=== PATIENT | female | born 1985 | race Caucasian/White ===

== ENCOUNTER 2019-09-23 05:10 | Inpatient (IN) | payer OTHER ==
[2019-09-23] MEDS ORDERED: ELECTROLYTE-148 SOLN 500 ML IV ONE (05:15)
[2019-09-23] MEDS ORDERED: CITRIC ACID/SODIUM CITRATE 30 ML UNIT-DOSE CUP PO ONE (05:15)
[2019-09-23] MEDS ORDERED: ELECTROLYTE-148 SOLN 1,000 ML IV SCH (05:45)
[2019-09-23 06:25] VITALS: BMI 21.2
[2019-09-23] MEDS ORDERED: ONDANSETRON 4 MG/2 ML VIAL IVPUSH PRN (07:43)
[2019-09-23] MEDS ORDERED: morphine SULFATE/Preservative Free 0.5 MG/ML (1cc Syringe) ONE (07:51)
[2019-09-23] MEDS ORDERED: ceFAZolin SODIUM 1 GM VIAL ONE (08:26)
[2019-09-23] MEDS ORDERED: OXYTOCIN 10 UNITS/ML VIAL ONE (08:41)
[2019-09-23] MEDS ORDERED: METHYLERGONOVINE MALEATE 0.2 MG/1 ML AMP IM PRN (09:17)
--- NOTE | 2019-09-23 09:17 | PD.OB.PROG ---
Past Medical History - Primary Care Physician Documenting Provider Type: Laborist - Admission Chief Complaint: previous c sections History Source: Patient Limitations to Obtaining History: No Limitations - Nursing Documentation Maternal Triage Index: Maternal Triage Index ( Priority 5, Requesting MFTI) Hemorrhage Risk Assessment: Risk Level Medium Risk Medium Level Risk Factors for Prior , uterine Hemorrhage Nursing Documentation Reviewed: Yes - Past Medical History ...: 8 ...Para: 3 ...Term: 3 ...: 0 ...Spon : 0 ...Induced : 4 ...Living Children: 0 ...Multiple Gestation: 0 ... Weeks Gestation by Dates: 40.2 ...EDC by Dates: 09/21/19 ...EDC by Sono: 09/30/19 - Past Surgical History Past Surgical History: Yes: (previous c section x 3) - Smoking History Smoking history: Never smoked Have you smoked in the past 12 months: No - Alcohol/Substance Use Hx Alcohol Use: No Physical Exam - Obstetrical Vital Signs: Vital Signs Temperature 98.2 F 09/23/19 06:14 Pulse Rate 71 09/23/19 06:14 Respiratory Rate 18 09/23/19 06:14 Blood Pressure 117/74 09/23/19 06:14 O2 Sat by Pulse Oximetry (%) Assessment/Plan portfolio assistant; primary surgeon = Dr Jena Anderson for repeat c section # 4
--- NOTE | 2019-09-23 09:26 | HP ---
Past Medical History - Primary Care Physician PCP:: Christina Anderson - Admission Chief Complaint: scheduled C/S x4 History Source: Patient Limitations to Obtaining History: No Limitations - Past Medical History ...: 8 ...Para: 3 ...Term: 3 ...: 0 ...Spon : 0 ...Induced : 4 ...Living Children: 0 ...Multiple Gestation: 0 ... Weeks Gestation by Dates: 39 ...EDC by Dates: 09/21/19 ...EDC by Sono: 09/30/19 - Past Surgical History Past Surgical History: Yes: (previous c section x 3) Hx Myomectomy: No Hx Transabdominal Cerclage: No - Smoking History Smoking history: Never smoked Have you smoked in the past 12 months: No - Alcohol/Substance Use Hx Alcohol Use: No Home Medications - Allergies Allergies/Adverse Reactions: Allergies Allergy/AdvReac Type Severity Reaction Status Date / Time No Known Allergies Allergy Verified 08/25/19 08:38 - Home Medications Home Medications: Ambulatory Orders Pnv No.95/Ferrous Fum/Folic AC [ Formula] 1 each PO DAILY 07/23/19 Review of Systems - Review of Systems Constitutional: reports: No Symptoms Cardiovascular: reports: No Symptoms Respiratory: reports: No Symptoms Gastrointestinal: reports: No Symptoms Genitourinary: reports: No Symptoms Breasts: reports: No Symptoms Reported Musculoskeletal: reports: No Symptoms Psychiatric: reports: No Symptoms Physical Exam - Maternity Vital Signs: Vital Signs Temperature 98.2 F 09/23/19 06:14 Pulse Rate 71 09/23/19 06:14 Respiratory Rate 18 09/23/19 06:14 Blood Pressure 117/74 09/23/19 06:14 O2 Sat by Pulse Oximetry (%) Constitutional: Yes: No Distress, Calm Cardiovascular: Yes: Regular Rate and Rhythm Lungs: Clear to auscultation Breast(s): Yes: WNL - Abdominal Exam/OB Fundal Height: 39 Number of Fetuses: Single Presentation: Vertex Contractions: No Category: I - Vaginal Exam/OB Vaginal Bleeding: No - Physical Exam Musculoskeletal: Yes: WNL Extremities: Yes: WNL Edema: No Psychiatric: Yes: Alert, Oriented Assessment/Plan 34 y/o at 39 weeks for scheduled repeat C/S x4. Declines BTL. Admit to L&D Informed consent To OR when ready
--- NOTE | 2019-09-23 09:31 | OP ---
Operative Note - Note: Operative Date: 09/23/19 Pre-Operative Diagnosis: previous C/S x3 Operation: repeat C/S x4, lysis of adhesions Findings: moderate omental adhesions to anterior surface of uterus live, male in cephalic presentation delivered without difficulty with score 9/9 normal fallopian tubes and ovaries b/l Post-Operative Diagnosis: Same as Pre-op Surgeon: Christina Anderson Gwot Ia/Ilo Intelligence Support: Kitty Osorio Anesthesiologist/PERFORMANCE REPORTER: Su Cooper Anesthesia: Spinal Estimated Blood Loss (mls): 600 Operative Report Dictated: No
[2019-09-23] MEDS ORDERED: OXYTOCIN 20 UNITS in 0.9% NS 20 UNIT/1,000 ML INFUS.BAG IV ONE (09:35)
[2019-09-23 10:12] LABS: CORD HCO3 25.2 mmHg (20-29); CORD PCO2 56.3 mmHg (30-78); CORD pH 7.269 (7.14-7.44)
[2019-09-23 10:14] LABS: CORD BASE EXCESS -2.2 mmol/L (0-2); CORD HCO3 23.8 mmHg (20-29); CORD PCO2 45.3 mmHg (30-78); CORD pH 7.339 (7.14-7.44)
[2019-09-23] MEDS: PRENATAL VITAMINS W/ FOLIC ACID TABLET (FP) PO SCH (10:42)
[2019-09-23] MEDS: IBUPROFEN 800 MG/8 ML IJ IVPB PRN (11:54)
[2019-09-23] MEDS ORDERED: SENNOSIDES/DOCUSATE COMBO (SENNA PLUS) TABLET (UD) PO PRN (22:00)
--- NOTE | 2019-09-23 23:05 | OP ---
DATE OF OPERATION: 09/23/2019 PREOPERATIVE DIAGNOSIS: Previous section x3. POSTOPERATIVE DIAGNOSIS: Previous section x3. SURGERY: Repeat section x4 and lysis of adhesions. FINDINGS: Moderate omental adhesions to anterior surface of uterus. 4 cm window in lower uterine segment. Live male in cephalic presentation delivered without difficulty with score of 9 and 9. Normal fallopian tubes and ovaries bilaterally. SURGEON: Christina Anderson MD. TOWER OBSERVER: Kitty Osorio MD ANESTHESIOLOGIST: Su Cooper MD. ANESTHESIA: Spinal. ESTIMATED BLOOD LOSS: 600 mL. COMPLICATIONS: None. DESCRIPTION OF PROCEDURE: The patient was taken to the operating room where spinal anesthesia was administered without difficulty. She was prepped and draped in dorsal supine position with a leftward tilt. A Pfannenstiel skin incision was made over her previous scar. Incision was carried down to the level of the fascia with the Bovie. The fascia was incised and extended laterally. The superior aspect of the fascia was grasped with Zafar clamps and underlying rectus muscle was dissected off, and the muscles were dissected off the inferior aspect of the fascia in a similar fashion. The rectus muscles were elevated with Allis clamps and the muscles were in the midline and the peritoneum was identified and entered sharply. The entry was extended superiorly and inferiorly. Adhesiolysis was performed and a bladder blade was placed to keep the bladder out of the operative field. A low transverse uterine incision was made. The lower uterine segment was very thin, and there was a 4 cm window noted. The amniotic sac was ruptured and clear fluid was noted. The fetus was in cephalic presentation. The head was grasped and brought to the level of the incision, and with gentle fundal pressure, the was delivered without difficulty. The mouth and nose were suctioned with the bulb. The cord was clamped and cut, and the was handed to an awaiting soap worker. The placenta was delivered manually complete and intact. The uterus was delivered out of the abdominal cavity. The inside of the uterus was wiped clean with laparotomy sponges. The uterine incision was repaired with 0 Vicryl in running, locked fashion. The ovaries and tubes were noted to be normal. The uterus was returned to the abdominal cavity. The uterine incision was reinspected and good hemostasis was noted. The peritoneum was closed using 2-0 Vicryl. The fascia was closed using 0 Vicryl in running fashion and the skin was closed in subcuticular fashion using 3-0 Polysorb. The patient tolerated the procedure well. All counts were correct x2, and the patient was transferred to the recovery room in stable condition. MD DEVON CHERRY/[id number] MTDD
[2019-09-24] MEDS: IBUPROFEN 800 MG/8 ML IJ IVPB PRN (01:40)
[2019-09-24 07:38] LABS: BASO % 0.1 % (0-2.0); EOS % 0.6 % (0-4.5); HEMATOCRIT 27.7 % (32.4-45.2); HEMOGLOBIN 9.1 GM/dL (10.7-15.3); LYMPH % 9.7 % (8-40); MCH 26.8 pg (25.7-33.7); MCHC 32.7 g/dl (32.0-36.0); MEAN PLT VOLUME 8.2 fl (7.5-11.1); MONO % 3.6 % (3.8-10.2); PLATELET COUNT 197 K/MM3 (134-434); RBC 3.38 M/mm3 (3.60-5.2); RDW 17.2 % (11.6-15.6); WHITE BLOOD COUNT 9.1 K/mm3 (4.0-10.0)
[2019-09-24] MEDS ORDERED: BISACODYL 10 MG SUPP.RECT RC PRN (09:17)
[2019-09-24] MEDS ORDERED: DIPHTH,PERTUSS(ACELL),TET 0.5 ML DISP.SYRIN IM ONE (10:00)
--- NOTE | 2019-09-24 10:02 | PN ---
Progress Note (short form) - Note Progress Note: pt. without complaints vss- af abd: soft, nt, nd +BS ve: min lochia ext: no calf tenderness b/l a/p pod1 s/p rpt pt stable diet and ambulate as tolerated
[2019-09-24] MEDS: PRENATAL VITAMINS W/ FOLIC ACID TABLET (FP) PO SCH (10:27)
[2019-09-24] MEDS: SIMETHICONE 80 MG TAB.CHEW (FP) PO PRN ×3 (10:29→20:02)
[2019-09-24] MEDS: IBUPROFEN 600 MG TABLET (FP) PO PRN ×2 (13:14→20:01)
[2019-09-24] MEDS: oxyCODONE HCL 5 MG TABLET PO PRN ×2 (15:08→20:01)
--- NOTE | 2019-09-24 18:58 | PN ---
Progress Note (short form) - Note Progress Note: Anesthesiology Post-op POD#1 s/p repeat C/s under Spinal anesthesia. Pt. doing well. No complaints. VSS. Spinal resolved. 34 y.o. woman with stable post-operative course. Continue management as per primary team.
[2019-09-25] MEDS: IBUPROFEN 600 MG TABLET (FP) PO PRN ×3 (01:50→13:39)
[2019-09-25] MEDS: SIMETHICONE 80 MG TAB.CHEW (FP) PO PRN ×3 (01:50→13:40)
[2019-09-25] MEDS: oxyCODONE HCL 5 MG TABLET PO PRN ×2 (01:50→08:59)
--- NOTE | 2019-09-25 09:21 | DS ---
Physical Exam-SUPERVISOR POWDERED METAL Vital Signs: Vital Signs Temperature 98.6 F 09/24/19 21:43 Pulse Rate 80 09/24/19 21:43 Respiratory Rate 18 09/24/19 21:43 Blood Pressure 107/63 09/24/19 21:43 O2 Sat by Pulse Oximetry (%) 100 09/23/19 10:45 Constitutional: Yes: Well Nourished Eyes: Yes: WNL, Occular Prosthesis Neck: Yes: WNL Cardiovascular: Yes: WNL Respiratory: Yes: WNL Uterus: Yes: Firm ....Post : Yes: Uterus non-tender, Slight lochia rubra Wound/Incision: Yes: Clean/Dry, Well Approximated, Steri Strips Labs: CBC, BMP 09/24/19 07:20 Delivery - Delivery Type of Anesthesia: Spinal Episiotomy/Laceration: None EBL (cc): 600 Delivery, Single - Stages of Labor Date of Delivery: 09/23/19 Time of Delivery: 08:43 Time Placenta Delivered: 08:44 - Condition of Infant Inside Sales Consultant/Multicraft Operator Present: Yes Name: Kuldeep Kitchen Infant Gender: Male Weight: 3.033 kg Total Hours ROM (Hrs/Mins): 0hrs 2min - 1 Minute Total Score: 9 5 Minutes Total Score: 9 Remarks - Remarks Remarks: dressing removed; sterile strips in place; healing well Discharge Summary Problems reviewed: Yes Reason For Visit: SCHEDULE Procedures: Principal: repeat c section Hospital Course: anemia Condition: Good - Instructions Diet, Activity, Other Instructions: regular Disposition: HOME - Home Medications Comprehensive Discharge Medication List: Ambulatory Orders Pnv No.95/Ferrous Fum/Folic AC [ Formula] 1 each PO DAILY 07/23/19 Prescription Drug Monitoring Program (I-STOP) results: I-STOP reviewed and no issues identified
[2019-09-25 09:31] VITALS: BP 103/67; PULSE 78; TEMP 98
[2019-09-25] MEDS: PRENATAL VITAMINS W/ FOLIC ACID TABLET (FP) PO SCH (09:54)
--- NOTE | 2019-09-29 17:28 | PATH ---
Surgical Pathology Report Patient Name: ZIA [facility] Med. Rec. #: [id number] /Age/Gender: 1985 (Age: 34) / F Account: [id number] Location: [facility] OBS/VP INFORMATICS Taken: 09/23/2019 Received: 09/26/2019 Reported: 09/29/2019 Physicians: Christina Anderson M.D. Specimen(s) Received PLACENTA Clinical History , history of positive PPD and positive HSV 2 Final Diagnosis PLACENTA: THIRD TRIMESTER PLACENTA WITH FOCAL PERIVILLOUS FIBRIN DEPOSITION AND CHRONIC NONSPECIFIC DECIDUITIS. TRIVASCULAR CORD. MEMBRANES WITH NO DIAGNOSTIC ABNORMALITIES. Electronically Signed [place] Isabel M.D. Gross Description The specimen is received fresh labeled placenta and is a 429 gram, 16.5 x 14.0 x 2.3 cm. placenta with attached membranes and umbilical cord. The attached membranes are amor, translucent with focal opacities and insert marginally. The umbilical cord measures 11 cm. in length and averages 1 cm. in diameter. The cord inserts eccentrically, 3 cm. to the nearest margin. No true knots or strictures are identified. Cut surface of the umbilical cord reveals 3 vessels. The surface is stuart-blue with minimal fibrin deposition and appropriate caliber vessels. The maternal surface is red-brown with focal defects. Sectioning reveals red-brown, spongy parenchyma. No lesions are identified. Urologist Physician sections are submitted in three cassettes as follows: 1- membrane rolls and umbilical cord; 2-3- full thickness sections of placenta. /09/28/2019 [facility]09/28/2019
== END 2019-09-25 13:40 | disposition home or self-care (01) | DRG 540 ==
LOC: JLDR 05:10 → J3W 11:10
PROVIDERS: ADMIT Obstetrics & Gynecology; ATTEND Obstetrics & Gynecology
PROC: 10D00Z1 Extraction of Products of Conception, Low, Open Approach (ICD-10-PCS; principal; 2019-09-23)
PROC: 0DNU0ZZ Release Omentum, Open Approach (ICD-10-PCS; 2019-09-23)
PROC: 0DNW0ZZ Release Peritoneum, Open Approach (ICD-10-PCS; 2019-09-23)
DX: O82 Encounter for cesarean delivery without indication (principal); Z3A.39 39 weeks gestation of pregnancy; Z37.0 Single live birth; O34.219 Maternal care for unspecified type scar from previous cesarean delivery; O90.81 Anemia of the puerperium; D64.9 Anemia, unspecified; R76.11 Nonspecific reaction to tuberculin skin test without active tuberculosis; K66.0 Peritoneal adhesions (postprocedural) (postinfection); Z86.19 Personal history of other infectious and parasitic diseases
CPT/HCPCS: 36415; 36600; 82803; 85025; 88307-TC; 90715